=== PATIENT | male | born 1950 | race Caucasian/White ===

== ENCOUNTER 2020-03-29 15:08 | Inpatient (IN) ==
[2020-03-30] MEDS ORDERED: TYLENOL 500 MG TAB EXTRA STRENGTH PO ONE (00:52)
[2020-03-30] MEDS ORDERED: BENADRYL INJ 50 MG VIAL IVP ONE ×2 (00:53→14:23)
[2020-03-30] MEDS ORDERED: NS 1000 ML 1,000 ML ONE (00:57)
[2020-03-30 02:05] LABS: BASOPHILS % (AUTO) 1.2 % (0.2-1.0); EOSINOPHILS # (AUTO) 0.2 x10^3/uL (0.0-0.2); EOSINOPHILS % (AUTO) 4.8 % (0.9-2.9); HEMATOCRIT 21.6 % (42.0-54.0); HEMOGLOBIN 7.3 g/dL (13.5-18.0); LYMPHOCYTES # (AUTO) 0.4 X10^3/uL (1.3-2.9); LYMPHOCYTES % (AUTO) 11.9 % (21.0-51.0); MEAN CORPUSCULAR HEMOGLOBIN 31.3 pg (27.0-34.0); MEAN CORPUSCULAR HGB CONC 33.6 g/dL (33.0-35.0); MEAN PLATELET VOLUME 7.8 fL (7.4-11.0); MONOCYTES # (AUTO) 0.9 x10^3/uL (0.3-0.8); MONOCYTES % (AUTO) 23.4 % (0.0-13.0); NEUTROPHILS # (AUTO) 2.1 x10^3/uL (2.2-4.8); NEUTROPHILS % (AUTO) 58.7 % (42.0-75.0); PLATELET COUNT 129 X10^3/uL (150.0-450.0); RED BLOOD COUNT 2.32 X10^6/uL (4.7-6.0); RED CELL DISTRIBUTION WIDTH 14.9 % (11.6-16.5); WHITE BLOOD COUNT 3.6 X10^3/uL (3.6-10.0)
[2020-03-30 02:14] LABS: ALANINE AMINOTRANSFERASE 10 Units/L (12-78); ALBUMIN 2.1 g/dL (3.4-5.0); ALKALINE PHOSPHATASE 125 Units/L (46-116); ASPARTATE AMINO TRANSFERASE 21 Units/L (15-37); BLOOD UREA NITROGEN 22 mg/dL (7-18); CALCIUM 7.7 mg/dL (8.5-10.1); CARBON DIOXIDE 22.9 mmol/L (21-32); CHLORIDE 98 mmol/L (98-107); COR CA(FOR HYPOALB) 9.2 mg/dL (8.5-10.1); CREATININE 1.66 mg/dL (0.70-1.30); SODIUM 130 mmol/L (136-145); TOTAL PROTEIN 6.5 g/dL (6.4-8.2); TSH (3RD GENERATION) 3.321 uIU/mL (0.358-3.74); eGFR NON BLACK RACES 44 (>60)
[2020-03-30 02:28] LABS: PLATELET MORPHOLOGY COMMENT NORMAL (NORMAL)
[2020-03-30 03:16] VITALS: BMI 24.8
[2020-03-30 03:23] LABS: CKMB % 1.5 % (<4); CREATINE KINASE 65 Units/L (39-308); CREATINE KINASE MB < 1.0 ng/mL (0-4.0); TROPONIN I 0.02 ng/mL (0-1.5)
[2020-03-30] MEDS ORDERED: TYLENOL 325 MG TAB PO ONE ×4 (03:43→14:28)
[2020-03-30] MEDS ORDERED: BENADRYL CAP/TAB 25 MG PO ONE (03:48)
[2020-03-30] MEDS ORDERED: BENADRYL INJ 50 MG VIAL ONE ×2 (03:49→14:28)
[2020-03-30 03:59] LABS: BILIRUBIN,URINE NEGATIVE (NEGATIVE); BLOOD/HEMOGLOBIN,URINE 1+ (NEGATIVE); GLUCOSE, URINE NEGATIVE (NEGATIVE); KETONES,URINE NEGATIVE (NEGATIVE); LEUKOCYTE ESTERASE ,URINE NEGATIVE (NEGATIVE); NITRITES,URINE NEGATIVE (NEGATIVE); PH,URINE 6.5 (5.0 - 8.0); PROTEIN,URINE 1+ (NEGATIVE); UROBILINOGEN,URINE NORMAL (NORMAL)
[2020-03-30] MEDS ORDERED: PHARMACY CONSULT LTC MEDICATIONS XX SCH (04:00)
[2020-03-30 04:04] LABS: APPEARANCE,URINE CLEAR (CLEAR); BACTERIA,URINE NEGATIVE /HPF (NEGATIVE); COLOR,URINE PALE YELLOW (YELLOW); RBC,URINE NONE SEEN /HPF (0-3); SQUAMOUS EPITHELIAL CELL,UR RARE /HPF (NEGATIVE)
[2020-03-30] MEDS: NS 1000 ML 1,000 ML IV SCH ×2 (06:46→17:26)
--- NOTE | 2020-03-30 07:00 | RAD ---
HISTORYShortness of breathSTUDYChest AP portableCOMPARISONNoneFINDINGSThere is a pacemaker present in the left axilla. The patient is status post median sternotomy and CABG. The heart is minimally enlarged. No congestive heart failure is noted. No definite acute alveolar infiltrates are identified. Increased density is present in the medial aspect of the right lung base. This could represent some volume loss in the right lower lobe or prominent epicardial fat pad. Upright PA and lateral chest examination may be of further diagnostic value. No pleural effusions are identified. Bony thorax is unremarkable.IMPRESSIONMinimal cardiomegaly without congestive heart failureNo definite acute infiltratesAbnormal density in the medial right lung base which could represent a very prominent epicardial fat pad or volume loss in the right lower lobe. Evaluation with upright PA and lateral chest examination in the department is recommended.Electronically signed by: HALEIGH REYNOLDS (Mar 30, 2020 06:58:12)
[2020-03-30 09:39] LABS: HEMATOCRIT 22.7 % (42.0-54.0); HEMOGLOBIN 7.7 g/dL (13.5-18.0)
[2020-03-30] MEDS: NORCO 7.5/325 MG TAB PO PRN ×2 (11:21→21:20)
[2020-03-30] MEDS: ENTRESTO 24/26 MG TAB PO SCH ×2 (11:22→22:24)
[2020-03-30] MEDS: SYNTHROID 50 mcg TAB PO SCH (11:22)
[2020-03-30] MEDS ORDERED: LASIX IVP SCH (13:00)
--- NOTE | 2020-03-30 13:57 | DR.H&P ---
H&P - History & Physical for Day of: H&P Date: 03/29/20 - Chief Complaint Chief Complaint: weakness, anemic - History of Present Illness History of Present Illness: PT IS 69 WM DIRECT ADMIT FROM [facility] WITH SYMPTOMATIC ANEMIA. PT STATES HE HAD BEEN FEELING WEAK, DENIES ANY BLOOD IN URINE OR STOOL, DENIES ANY APPETITE CHANGES. PT HAS PMH OF CHF, CAD, AND OSTEOARTHRITIS. PT ADMITTED FOR TRANSFUSION PRBC. - Past Medical History Past Medical History: Arthritis, CHF, Coronary Artery Disease, Hypertension - Past Surgical History Surgical History: CABG/Valve Surgery, Cholecystectomy - Social History Does patient currently use any type of tobacco product: No Have you used tobacco products in the last 12 months: No Type of Tobacco Use: None Does any household member use tobacco: No Drug Use: None - Medications Home Medications: meperidine [From Demerol] Allergy (Verified 03/30/20 02:58) Penicillins Allergy (Verified 03/30/20 02:58) Sulfa (Sulfonamide Antibiotics) Allergy (Verified 03/30/20 02:59) tramadol Allergy (Verified 03/30/20 02:57) CONTINUE taking the following medications clopidogrel [Plavix] 75 mg PO DAILY 03/30/20 [History] hydrocodone-acetaminophen [[place]] 1 tab PO Q8H PRN 03/30/20 [History] levothyroxine 50 mcg PO DAILY 03/30/20 [History] lidocaine HCl [Lidocaine Viscous] 1 applic MUCOUS MEMBRANE QID PRN 03/30/20 [Hi story] menthol [Biofreeze (menthol)] 1 applic TOPICAL Q4HR PRN 03/30/20 [History] metolazone 5 mg PO DAILY 03/30/20 [History] rosuvastatin 10 mg PO HS 03/30/20 [History] sacubitril-valsartan [Entresto] 1 tab PO BID 03/30/20 [History] spironolactone 25 mg PO .,,SA,ALICEA 03/30/20 [History] spironolactone 50 mg PO .MO,WE,FR 03/30/20 [History] - Review of Systems Constitutional: Weakness Eyes: No Symptoms Reported ENT: No Symptoms Reported Respiratory: No Symptoms Reported Cardiovascular: No Symptoms Reported Gastrointestinal: denies: Nausea, Vomiting, Abdominal Pain, Diarrhea, Constipation, Hematochezia Musculoskeletal: Back Pain, Neck Pain Skin: No Symptoms Reported Neurological: Weakness - Physical Exam Vital Signs: Temperature 97.9 F Pulse Rate [Brachial] 82 Respiratory Rate 20 Blood Pressure [Left Arm] 104/55 O2 Sat by Pulse Oximetry 95 Oriented: Normal Eyes: Normal Ear: Normal Nose: Normal Throat: Normal Respiratory: RLL Diminished, LLL Diminished Cardiovascular: Normal : Normal Auscultation: Bowel Sounds: Normal Palpation: Normal Tenderness: Normal Skin: Decreased Turgur Musculoskeletal: Back:Thoracic, Back:Lumbar Psychiatric: Anxiety Mood Description: Anxious Affect: Anxious Speech Pattern: Clear, Appropriate - Assessment/Plan (1) Anemia Status: Acute Plan: ADMIT, TRANSFUSE 2 UNITS PRBC SLOWLY WITH IV LASIX FOLLOWING FIRST UNIT, REPEAT H&H. IV PROTONIX, OCCULT STOOL, ANEMIA PANEL. IV HYDRATION, STRICT I&OS. VERIFY AND RESUME HOME MEDICATIONS (2) CHF (congestive heart failure) Status: Acute (3) CAD (coronary artery disease) Status: Acute (4) Arthritis Status: Acute - Allergies Allergies/Adverse Reactions: Allergies Allergy/AdvReac Type Severity Reaction Status Date / Time meperidine [From Demerol] Allergy Verified 03/30/20 02:58 Penicillins Allergy Verified 03/30/20 02:58 Sulfa (Sulfonamide Allergy Verified 03/30/20 02:59 Antibiotics) tramadol Allergy Verified 03/30/20 02:57
[2020-03-30] MEDS ORDERED: NS 500 ML IV 500 ML IV ONE (14:28)
[2020-03-30] MEDS: PROTONIX INJ 40 MG VIAL IVP SCH (14:30)
[2020-03-30] MEDS: HEMOCYTE-PLUS PO SCH (14:30)
[2020-03-30] MEDS ORDERED: PROCRIT or EPOGEN VIAL 10,000 UNITS SC ONE (21:30)
[2020-03-30] MEDS ORDERED: NS 100 ML IV 100 ML with VENOFER 100 MG IV NR ×2 (21:31)
[2020-03-30 21:42] LABS: HEMATOCRIT 27.4 % (42.0-54.0); HEMOGLOBIN 9.3 g/dL (13.5-18.0)
[2020-03-30] MEDS: FOLIC ACID TAB 1 MG PO SCH (22:45)
[2020-03-31] MEDS: NORCO 7.5/325 MG TAB PO PRN ×2 (01:59→09:47)
[2020-03-31 06:54] LABS: ALANINE AMINOTRANSFERASE 11 Units/L (12-78); ALBUMIN 1.9 g/dL (3.4-5.0); ALKALINE PHOSPHATASE 109 Units/L (46-116); ASPARTATE AMINO TRANSFERASE 20 Units/L (15-37); BLOOD UREA NITROGEN 20 mg/dL (7-18); CALCIUM 7.8 mg/dL (8.5-10.1); CARBON DIOXIDE 26.3 mmol/L (21-32); CHLORIDE 101 mmol/L (98-107); COR CA(FOR HYPOALB) 9.5 mg/dL (8.5-10.1); CREATININE 1.48 mg/dL (0.70-1.30); SODIUM 133 mmol/L (136-145); TOTAL PROTEIN 6.3 g/dL (6.4-8.2); eGFR NON BLACK RACES 50 (>60)
[2020-03-31 06:57] LABS: BASOPHILS # (AUTO) 0.1 X10^3/uL (0.0-0.1); BASOPHILS % (AUTO) 1.4 % (0.2-1.0); EOSINOPHILS # (AUTO) 0.3 x10^3/uL (0.0-0.2); EOSINOPHILS % (AUTO) 7.2 % (0.9-2.9); HEMATOCRIT 24.7 % (42.0-54.0); HEMOGLOBIN 8.6 g/dL (13.5-18.0); LYMPHOCYTES # (AUTO) 0.5 X10^3/uL (1.3-2.9); LYMPHOCYTES % (AUTO) 12.5 % (21.0-51.0); MEAN CORPUSCULAR HEMOGLOBIN 31.8 pg (27.0-34.0); MEAN CORPUSCULAR HGB CONC 34.7 g/dL (33.0-35.0); MEAN CORPUSCULAR VOLUME 91.6 fL (80.0-100.0); MEAN PLATELET VOLUME 7.7 fL (7.4-11.0); MONOCYTES # (AUTO) 0.9 x10^3/uL (0.3-0.8); MONOCYTES % (AUTO) 24.4 % (0.0-13.0); NEUTROPHILS # (AUTO) 2.1 x10^3/uL (2.2-4.8); NEUTROPHILS % (AUTO) 54.5 % (42.0-75.0); PLATELET COUNT 123 X10^3/uL (150.0-450.0); RED CELL DISTRIBUTION WIDTH 14.4 % (11.6-16.5); WHITE BLOOD COUNT 3.8 X10^3/uL (3.6-10.0)
[2020-03-31 08:14] LABS: PLATELET MORPHOLOGY COMMENT NORMAL (NORMAL)
[2020-03-31] MEDS: NS 1000 ML 1,000 ML IV SCH (09:48)
[2020-03-31] MEDS: ENTRESTO 24/26 MG TAB PO SCH (09:48)
[2020-03-31] MEDS: HEMOCYTE-PLUS PO SCH (09:49)
[2020-03-31] MEDS: PROTONIX INJ 40 MG VIAL IVP SCH (09:49)
[2020-03-31] MEDS: FOLIC ACID TAB 1 MG PO SCH (09:49)
[2020-03-31] MEDS: SYNTHROID 50 mcg TAB PO SCH (09:50)
[2020-03-31] MEDS ORDERED: CYTOTEC PO SCH (10:00)
[2020-03-31] MEDS ORDERED: LOVENOX INJ 40 MG SYR SC SCH (15:00)
[2020-03-31 16:21] LABS: HEMOGLOBIN 8.6 g/dL (13.5-18.0)
[2020-03-31 16:57] VITALS: BP 105/62
== END 2020-03-31 18:26 | DRG 812 ==
LOC: MED/SURG → OBSVTOIN 21:27
PROVIDERS: ADMIT Internal Medicine; ATTEND Internal Medicine
DX: I11.0 Hypertensive heart disease with heart failure; M19.90 Unspecified osteoarthritis, unspecified site; I25.10 Atherosclerotic heart disease of native coronary artery without angina pectoris; N28.9 Disorder of kidney and ureter, unspecified; D64.9 Anemia, unspecified; I50.9 Heart failure, unspecified; E87.6 Hypokalemia